=== PATIENT | female | born 1965 | race Caucasian/White ===

== ENCOUNTER 2017-05-31 16:37 | Emergency (ER) | payer OTHER ==
[2017-05-31] MEDS ORDERED: AMPH1TAB29 PO (16:43)
[2017-05-31] MEDS ORDERED: SODIUM CHLORIDE 0.9% FLUSH 10 ML FLUSH IVF PRN (17:00)
[2017-05-31] MEDS ORDERED: ASPIRIN 81 MG CHEW TAB PO ONE (17:00)
[2017-05-31] MEDS ORDERED: LORazepam 2 MG/ML VIAL IV PUSH SCH (17:00)
[2017-05-31 17:01] VITALS: O2SAT 98
[2017-05-31 17:02] LABS: AUTOMATED NEUTROPHIL # 3.9 TH/MM3 (1.8-7.7); BASOPHIL % 0.7 % (0.0-2.0); EOSINOPHIL # 0.1 TH/MM3 (0-0.4); HEMOGLOBIN 13.2 GM/DL (11.6-15.3); LYMPH % 34.9 % (9.0-44.0); LYMPHOCYTE # 2.3 TH/MM3 (1.0-4.8); MEAN CELL VOLUME 87.7 FL (80.0-100.0); MEAN CORPUSCULAR HEMOGLOBIN 29.6 PG (27.0-34.0); MEAN CORPUSCULAR HGB CONC 33.8 % (32.0-36.0); MEAN PLATELET VOLUME 8.1 FL (7.0-11.0); MONO % 5.8 % (0.0-8.0); MONOCYTE # 0.4 TH/MM3 (0-0.9); NEUT % 57.6 % (16.0-70.0); PLATELET COUNT 223 TH/MM3 (150-450); RED BLOOD COUNT 4.45 MIL/MM3 (4.00-5.30); RED CELL DISTRIBUTION WIDTH 12.9 % (11.6-17.2); WHITE BLOOD COUNT 6.7 TH/MM3 (4.0-11.0)
[2017-05-31 17:11] LABS: CHLORIDE 106 MEQ/L (98-107); SODIUM (NA) 140 MEQ/L (136-145)
[2017-05-31 17:14] LABS: BICARBONATE 26.4 MEQ/L (21.0-32.0); BLOOD UREA NITROGEN 12 MG/DL (7-18); CALCIUM 8.8 MG/DL (8.5-10.1); GLUCOSE,RANDOM 111 MG/DL (74-106); MAGNESIUM 2.2 MG/DL (1.5-2.5)
[2017-05-31 17:18] LABS: CREATININE 0.63 MG/DL (0.50-1.00); GLOMERULAR FILTRATION RATE 100 ML/MIN (>89)
[2017-05-31 17:21] LABS: PROTHROMBIN TIME - PATIENT 10.6 SEC (9.8-11.6)
[2017-05-31 17:22] LABS: TROPONIN I LESS THAN 0.02 NG/ML (0.02-0.05)
[2017-05-31 17:27] LABS: D-DIMER LESS THAN 0.19 MG/L FEU (0.00-0.50)
--- NOTE | 2017-05-31 17:46 | RADRPT ---
EXAM DATE/TIME: 05/31/2017 16:57 [place] COMPARISON: No previous studies available for comparison. INDICATIONS : Chest pain. MEDICAL HISTORY : None. SURGICAL HISTORY : None. ENCOUNTER: Initial ACUITY: 1 day PAIN SCORE: 5/10 LOCATION: chest substernal. FINDINGS: PA and lateral views of the chest demonstrate the lungs to be symmetrically aerated without evidence of mass, infiltrate or effusion. The cardiomediastinal contours are unremarkable. Osseous structure s are intact. CONCLUSION: No acute disease. Luis Antonio Stern MD on May 31, 2017 at 17:44 Board Certified Radiologist. This report was verified electronically.
[2017-05-31] MEDS ORDERED: LORA-474 PO (17:49)
--- NOTE | 2017-05-31 17:49 | PD ---
HPI . Chest pain Chief Complaint: Chest Pain Time Seen by Provider: 16:52 Travel History International Travel<30 days: No Contact w/Intl Traveler<30days: No Traveled to known affect area: No History of Present Illness HPI Patient presents with a chief complaint of chest pain. Onset was 2 days ago. She reports 3 episodes of sharp chest pain which lasted between 1 and 2 hours each. The last episode occurred just prior to her presenting to us. She attributes her pain to stress. She states that her father just . She is having some mild nausea and headache. She denies shortness of breath. She reports no known modifying factors. Current pain level is 0. PFSH Past Medical History Diminished Hearing: No Headaches: Yes Tetanus Vaccination: < 5 Years Influenza Vaccination: No ?: Not Past Surgical History Hysterectomy: Yes Social History Alcohol Use: Yes (occ) Tobacco Use: No Substance Use: No Allergies-Medications (Allergen,Severity, Reaction): Coded Allergies: No Known Allergies (Verified Allergy, Unknown, 05/31/17) Reported Meds & Prescriptions Reported Meds & Active Scripts Active Reported Adderall (Amphetamine-Dextroamphetamine) 5 Mg Tab 10 Mg PO BID Avoid late evening doses. Space doses at least 4 to 6 hours if more than once/day dosing. Review of Systems Except as stated in HPI: all other systems reviewed are Neg Cardiovascular: Positive: Chest Pain or Discomfort Respiratory: No: Shortness of Breath Gastrointestinal: Positive: Nausea Psychiatric: Positive: Anxiety (Situational anxiety over the recent of her father.) Physical Exam Narrative GENERAL: This is a healthy-appearing woman who is in no distress. SKIN: warm/dry. Normal color and turgor. HEAD: Normocephalic. Atraumatic. EYES: Pupils equal and round. No scleral icterus. No injection or drainage. ENT: No nasal bleeding or discharge. Mucous membranes pink and moist. NECK: Trachea midline. Full range of motion without pain.. CARDIOVASCULAR: Regular rate and rhythm. Heart sounds are normal. RESPIRATORY: No accessory muscle use. Clear to auscultation. Breath sounds equal bilaterally. Chest wall is nontender. GASTROINTESTINAL: Abdomen soft. Nontender. Bowel sounds present. Nondistended. Delivery MUSCULOSKELETAL: No obvious deformities. NEUROLOGICAL: Awake and alert. No obvious cranial nerve deficits. Motor grossly within normal limits. Normal speech. PSYCHIATRIC: Appropriate mood and affect; insight and judgment normal. Data Data Last Documented VS Vital Signs Date Time Temp Pulse Resp B/P (MAP) Pulse Ox O2 Delivery O2 Flow Rate FiO2 05/31/17 17:01 98 Orders Orders Basic Metabolic Panel (Bmp) (05/31/17 16:52) Complete Blood Count With Diff (05/31/17 16:52) D-Dimer (05/31/17 16:52) Magnesium (Mg) (05/31/17 16:52) Prothrombin Time / Inr (Pt) (05/31/17 16:52) Act Partial Throm Time (Ptt) (05/31/17 16:52) Troponin I (05/31/17 16:52) Ecg Monitoring (05/31/17 16:52) Iv Access Insert/Monitor (05/31/17 16:52) Oximetry (05/31/17 16:52) Aspirin Chew (Aspirin Chew) (05/31/17 17:00) Sodium Chloride 0.9% Flush (Ns Flush) (05/31/17 17:00) Chest, Pa & Lat (05/31/17 16:52) Lorazepam Inj (Ativan Inj) (05/31/17 17:00) Labs Laboratory Tests Test 05/31/17 16:48 White Blood Count 6.7 TH/MM3 Red Blood Count 4.45 MIL/MM3 Hemoglobin 13.2 GM/DL Hematocrit 39.0 % Mean Corpuscular Volume 87.7 FL Mean Corpuscular Hemoglobin 29.6 PG Mean Corpuscular Hemoglobin Concent 33.8 % Red Cell Distribution Width 12.9 % Platelet Count 223 TH/MM3 Mean Platelet Volume 8.1 FL Neutrophils (%) (Auto) 57.6 % Lymphocytes (%) (Auto) 34.9 % Monocytes (%) (Auto) 5.8 % Eosinophils (%) (Auto) 1.0 % Basophils (%) (Auto) 0.7 % Neutrophils # (Auto) 3.9 TH/MM3 Lymphocytes # (Auto) 2.3 TH/MM3 Monocytes # (Auto) 0.4 TH/MM3 Eosinophils # (Auto) 0.1 TH/MM3 Basophils # (Auto) 0.0 TH/MM3 CBC Comment DIFF FINAL Differential Comment Prothrombin Time 10.6 SEC Prothromb Time International Ratio 1.0 RATIO Activated Partial Thromboplast Time 26.1 SEC D-Dimer Quantitative (PE/DVT) LESS THAN 0.19 MG/L FEU Blood Urea Nitrogen 12 MG/DL Creatinine 0.63 MG/DL Random Glucose 111 MG/DL Calcium Level 8.8 MG/DL Magnesium Level 2.2 MG/DL Sodium Level 140 MEQ/L Potassium Level 3.3 MEQ/L Chloride Level 106 MEQ/L Carbon Dioxide Level 26.4 MEQ/L Anion Gap 8 MEQ/L Estimat Glomerular Filtration Rate 100 ML/MIN Troponin I LESS THAN 0.02 NG/ML MDM Medical Decision Making Medical Screen Exam Complete: Yes Emergency Medical Condition: Yes Interpretation(s) EKG shows a normal sinus rhythm with no acute ischemic changes. Differential Diagnosis Differential diagnosis of chest pain includes but is not limited to musculoskeletal pain, pulmonary embolism, acute coronary syndrome, pneumonia, pleurisy Narrative Course This patient presents complaining with intermittent sharp chest pain for the last 2 days. She reports the recent of her father. I ordered Ativan but she declined because she is driving. CBC & BMP Diagram 05/31/17 16:48 Calcium Level 8.8, Magnesium Level 2.2 D-dimer and troponin are negative. Chest x-ray to my interpretation is negative. I have offered admission to the chest pain center. The patient declined stating that she her brother is flying in today for her father's . She states that she does have a primary care provider that she can see in the near future for further evaluation. Diagnosis Primary Impression: Chest pain Qualified Codes: R07.9 - Chest pain, unspecified Patient Instructions: Chest Pain (DC), General Instructions Med/Other Pt SpecificInfo: Prescription(s) given Scripts Lorazepam (Ativan) 1 Mg Tab 1 MG PO Q8H Y for ANXIETY AND/OR AGITATION, #10 TAB 0 Refills Prov: Adwoa Vitale MD 05/31/17 Disposition: DISCHARGE HOME Condition: Stable Adwoa Vitale MD May 31, 2017 17:49
--- NOTE | 2017-06-01 22:43 | EKG ---
Date Performed: 05/31/2017 Time Performed: 16:49:31 PTAGE: 51 years EKG: Sinus rhythm NORMAL ECG NO PREVIOUS TRACING DOCTOR: Miguelina Rojo Interpretating Date/Time 06/01/2017 22:40:58
== END 2017-05-31 18:25 | disposition home or self-care (01) ==
LOC: PHED 16:37
DX: R07.9 Chest pain, unspecified (principal); R11.0 Nausea; R51 Headache
CPT/HCPCS: 71046; 80048; 83735; 84484; 85025; 85379; 85610; 85730; 93005; 96374; 99285; J2060